=== PATIENT | female | born 1965 | race Caucasian/White ===

== ENCOUNTER 2016-09-13 11:22 | Emergency (ER) | payer OTHER ==
[2016-09-13] MEDS ORDERED: HYDROmorphONE/DILAUDID 1 MG/ML SYR IVP ONE ×2 (12:03→14:26)
[2016-09-13] MEDS ORDERED: ONDANSETRON 4 MG/2 ML VIAL IVP ONE (12:04)
[2016-09-13] MEDS ORDERED: NS 500 ML IV ONE (12:22)
--- NOTE | 2016-09-13 13:04 | DX ---
Left Wrist Series, Four Views, 12:26 p.m. Indication: Kickboxing injury. Comparison: None. Findings: A transverse fracture courses through the distal radial diaphysis 7 cm proximal to the art icular surface. The distal fracture fragment is displaced ulnarly one full bone width, is minimally r etracted, and has mild (20 degrees) of apex ulnar angulation. A nondisplaced oblique fracture courses through the distal ulnar metaphysis. Impression: 1. Acute displaced and angulated distal radial diaphyseal fracture. 2. Acute nondisplaced distal ulnar metaphyseal fracture.
--- NOTE | 2016-09-13 13:24 | EDPHY ---
H & P Stated Complaint: fall kickboxing. deformity and pain left wrist Source: Patient, Family Exam Limitations: No limitations - Personal History LMP (Females 10-55): Post Menopausal Current Tetanus/Diphtheria Vaccine: Yes Current Tetanus Diphtheria and Acellular Pertussis (TDAP): Yes Tetanus Vaccine Date: 2013 - Medical/Surgical History Hx Asthma: No Hx Chronic Respiratory Disease: No Hx Diabetes: No Hx Cardiac Disease: No Hx Renal Disease: No Hx Cirrhosis: No Hx Alcoholism: No Hx HIV/AIDS: No Hx Splenectomy or Spleen Trauma: No Other PMH: R ACHILLES - Social History Smoking Status: Never smoked HPI/ROS: CHIEF COMPLAINT: Left wrist pain HISTORY OF PRESENT ILLNESS: fell while kickboxing and injured her left wrist falling on outstretched hand. significant pain and deformity of the left wrist. The pain radiates into the hand but there is no numbness or tingling of the hand. There is no tenderness of the ipsilateral elbow or shoulder. Range of motion has not been tested due to pain. She has severe pain at this time. Worse with any kind of movement or palpation. Improving with the IV pain medication and splinting. No other injuries elsewhere. No other associated complaints or modifying factors. PRIOR ORTHO INJURIES: Achilles rupture ESTABLISHED ORTHOPEDIST: Dr. Jese De Anda REVIEW OF SYSTEMS: Ten systems reviewed and are negative unless otherwise noted in the HPI EXAMINATION General Appearance: Alert, no distress Head: normocephalic, atraumatic Eyes: Pupils equal and round, no conjunctival pallor or injection ENT, Mouth: Mucous membranes moist Neck: Normal inspection Respiratory: No dyspnea or retractions. No distress Cardiovascular: Pulses normal throughout. Brisk cap refill in all 10 fingers. Neurological: A&O, sensory symmetric In radial, ulnar and median. strength symmetric . Skin: Warm and dry, no rash Extremities: deformity to the left wrist. No cyanosis, pallor or anesthesia distally. There is significant tenderness to palpation of this. Range of motion not tested due to deformity. Range of motion of the ipsilateral elbow and shoulder are intact without pain Psychiatric: Mood and affect normal DIFFERENTIAL DIAGNOSES: Including but not limited to fracture, fracture dislocation, MDM: 1:20 p.m. fall on outstretched hand with fracture dislocation of the left radius and ulna. She was neurovascular intact on 1st examination. despite any elbow pain we did obtain an elbow x-ray to rule out occult fracture. 1:28 p.m. I have re-evaluated the patient. X-ray has been read by me without any acute fracture of the elbow. We are awaiting the radiologist's repeat on repeat examination of the wrist, she has no numbness or paresthesia of the hands she has significant pain. She is apprehensive about being splinted in this position. I will discuss with Orthopedics. She is requesting that I call her established orthopedist 1st which I will try and do at this time. 2:05 p.m. He remains neurovascular intact pain is significant. I have discussed the case with Dr. Montague, the physician on-call for her status Orthopedics outside of the [facility]. He said that he be happy to see her on Thursday morning and plan for surgical intervention. He did recommend that we attempt to reduce the forearm. He will be happy to see her early next week. 3:20pm Forearm has been reduced with procedural sedation administered and monitored by Dr. Briones and C-arm used to verify reduction. nearly completely reduced. Tolerated the procedure well without complication. neurovascular intact distally postprocedure. Postprocedural reduction film ordered and pending at this time. 3:45 p.m. she is feeling significantly better pill the post reduction film shows significant improvement in the alignment. She remains neurovascularly intact post procedure and post splinting. She will be discharged home stable condition with pain medication, definitive orthopedic follow-up information and return to the ER precautions. PROCEDURE: Left Forearm Reduction Consent: written Anesthesia: Procederal sedation (Dr. Briones) After good anesthesia, the left forearm was reduced with use of C-arm to verify placement. There was near anatomic but not complete anatomic reduction. The patient tolerated the procedure well without any desaturations or complications. Splint was placed while she was still under procedural sedation. She remains neurovascularly intact post reduction with 2+ radial and brisk cap refill ED Precautions: Worsening pain. Erythema, edema, cyanosis, pallor, paresthesia or anesthesia. SUPERVISION: Patient was evaluated in conjunction with the supervising physician. Please see their note for details. (Eric Palmer) Constitutional: Initial Vital Signs Temperature (C) 98.2 F 09/13/16 11:40 Heart Rate 68 09/13/16 11:40 Respiratory Rate 18 09/13/16 11:40 Blood Pressure 128/85 H 09/13/16 11:40 O2 Sat (%) 98 09/13/16 11:40 O2 Delivery Mode [Post Non-Rebreather Mask Procedure 2nd] O2 Delivery Mode [Post Non-Rebreather Mask Procedure 1st] O2 Delivery Mode [Procedural Non-Rebreather Mask 3rd] O2 Delivery Mode [Procedural Non-Rebreather Mask 2nd] O2 Delivery Mode [Procedural Non-Rebreather Mask 1st] O2 Delivery Mode Room Air O2 (L/minute) [Post Procedure 15 2nd] O2 (L/minute) [Post Procedure 15 1st] O2 (L/minute) [Procedural 3rd] 15 O2 (L/minute) [Procedural 2nd] 15 O2 (L/minute) [Procedural 1st] 15 O2 (L/minute) 15 Allergies/Adverse Reactions: gluten [Gluten] Allergy (Intermediate, Verified 06/17/15 08:35) GI lactose [Lactose] Allergy (Intermediate, Verified 06/17/15 08:35) GI Home Medications: Medication Instructions Recorded Azithromycin [Zithromax] 250 mg PO DAILY #6 tab 06/17/15 Vitax 06/17/15 oxyCODONE/APAP 5/325 [Percocet 1 - 2 tab PO Q4-6PRN PRN #12 tab 06/17/15 5/325 (*)] Hydrocodone/APAP 5/325 [[place] 1 - 2 tab PO Q6H PRN #20 tab 09/13/16 5/325 (*)] Ondansetron Odt [Zofran Odt 4 mg 4 mg PO Q4 PRN #12 tab 09/13/16 (*)] Medical Decision Making Procedures: Procedure: Conscious sedation. Indication: 40 fracture reduction The patient is an appropriate candidate to tolerate procedural sedation. Patient's vital signs and mental status are appropriate. The risks, benefits, and alternatives of the sedation were discussed with the patient. The patient is an ASA classification of 1. The patient's Mallampati airway score was 2 and the patient did meet the 3-3-2 airway measurements. A time out was completed. The patient was sedated with propofol fall, 100 mg. The patient was monitored with continuous pulse oximetry, tire center manager and end tidal CO2. There were no complications and no significant hypoxemia. I performed the sedation. The total time I spent at the bedside during the procedural sedation was 15 minutes. The patient was examined after the procedural sedation and has returned to their pre-sedation baseline with normal vital signs and a normal examination. ( Marija Briones) Other Provider: I evaluated and participated in the management of the patient. I also evaluated the patient independently. My co-signature indicates that I have reviewed this chart and I agree with the findings and plan of care as documented. My personal H&P findings include: 50-year-old female whose kickboxing when she fell, landing on outstretched hand. She complains of significant discomfort in her distal left forearm, and wrist. No other trauma. Patient was neurovascularly intact on arrival. She does have a deformity at the distal radius. X-ray demonstrates a widely displaced, angulated, distal radius fracture proximal 4 cm proximal to the wrist. Patient also has distal ulnar fracture. Patient's course was discussed with both Orthopedic surgery on-call for the emergency department, Dr. Day as well as with the patient's preferred orthopedic surgeon, Dr. De Anda. Patient had a closed reduction performed in the emergency department. Post reduction x-rays demonstrate good realignment. Reduction was performed by SHANE Camacho. Conscious sedation was performed by myself. Please see the note. Patient was discharged to follow up with Dr. De Anda on Thursday. She understands that surgical intervention will most likely be needed. (Marija Briones) - Data Points Medications Given: Discontinued Medications Hydromorphone HCl (Dilaudid) 0.5 mg IVP EDNOW ONE Stop: 09/13/16 12:04 Last Admin: 09/13/16 12:20 Dose: 0.5 mg Sodium Chloride (Ns) 500 mls @ 0 mls/hr IV ONCE ONE PRN Reason: TKO Stop: 09/13/16 12:23 Last Admin: 09/13/16 12:22 Dose: 500 mls Ondansetron HCl (Zofran) 4 mg IVP EDNOW ONE Stop: 09/13/16 12:05 Last Admin: 09/13/16 12:20 Dose: 4 mg Departure - Departure Disposition: Home, Routine, Self-Care Clinical Impression: Distal radius fracture, left Qualifiers: Encounter type: initial encounter Fracture type: closed Fracture morphology: other fracture Qualifier Code: (S52.592A) Other fractures of lower end of left radius, initial encounter for closed fracture Distal end of ulna fracture, closed Qualifiers: Encounter type: initial encounter Fracture morphology: other fracture Laterality: left Qualifier Code: (S52.692A) Other fracture of lower end of left ulna, initial encounter for closed fracture Condition: Good Instructions: Arm Fracture in Adults (ED) Additional Instructions: follow-up with Dr. Montague as discussed. Call his office [phone] Thursday morning to year appointment. Return to the ER for worsening pain, numbness, tingling, weakness, cyanosis, pallor or paresthesia of the hand Referrals: Migue Salinas MD [Medical Doctor] - As per Instructions Prescriptions: Hydrocodone/APAP 5/325 [[place] 5/325 (*)] 1 - 2 tab PO Q6H PRN #20 tab PRN Reason: Pain, Mild Ondansetron Odt [Zofran Odt 4 mg (*)] 4 mg PO Q4 PRN #12 tab PRN Reason: Nausea/Vomiting, Use 1st
--- NOTE | 2016-09-13 13:27 | DX ---
Left Elbow, 3 Views 12:59 p.m. Indication: Pain. Fall. Findings: The elbow is anatomically aligned. No radial head fracture or effusion. Distal humerus and proximal shaft of the radius and ulna are intact. The displaced distal radius fracture is present june ng the margin of the film. Impression: Normal elbow. No acute radial head fracture or effusion.
[2016-09-13] MEDS ORDERED: fentaNYL 100 MCG/2 ML INJ IVP ONE (14:46)
[2016-09-13] MEDS ORDERED: PROPOFOL 200 MG/20 ML VIAL IVP ONE (14:47)
[2016-09-13] MEDS ORDERED: ONDANSETRON 4 MG/2 ML VIAL ONE (14:58)
--- NOTE | 2016-09-13 15:59 | DX ---
Left Forearm, Two Views Indication: Post reduction. Comparison: Left wrist series from 3 hours prior. Findings: The distal radial and ulnar fractures have been reduced into near-anatomic alignment and pl aced in a fiberglass splint. The distal radial fracture fragment remains translated dorsally one half of the bone width. Impression: Near-anatomic reduction of distal radial and ulnar fractures now in splint.
[2016-09-13 16:18] VITALS: BP 100/65; PULSE 85; RESP 20; TEMP 97.7; O2SAT 96
== END 2016-09-13 16:16 | disposition home or self-care (01) ==
PROC: 0PSJXZZ Reposition Left Radius, External Approach (ICD-10-PCS; principal; 2016-09-13)
PROC: 0PSLXZZ Reposition Left Ulna, External Approach (ICD-10-PCS; 2016-09-13)
DX: S52.592A Other fractures of lower end of left radius, initial encounter for closed fracture (principal); S52.692A Other fracture of lower end of left ulna, initial encounter for closed fracture; W19.XXXA Unspecified fall, initial encounter; Y99.8 Other external cause status; Y93.71 Activity, boxing
CPT/HCPCS: 96374; A4565; J1170; J2405; J2704; J3010

== ENCOUNTER 2016-12-14 14:40 | Emergency (ER) | payer OTHER ==
--- NOTE | 2016-12-14 15:02 | EDPHY ---
H & P Time Seen by Provider: 12/14/16 15:00 HPI/ROS: 50-year-old female presents complaining of cough, mild sore throat, nasal congestion for several days. She does not smoke she has no prior significant medical history. Her son currently is being treated for pneumonia. She is very concerned that she may possibly have pneumonia as well. Review of systems As per HPI General no fever no chills no weakness HEENT no eye pain no eye discharge. No eye redness, positive sore throat Respiratory positive cough, no shortness of breath Cardiac no chest pain, no peripheral edema GI no abdominal pain, no diarrhea, no constipation, no nausea, no vomiting no flank pain, no hematuria, no dysuria Musculoskeletal no myalgias, no joint pain Heme no easy bruising, no easy bleeding Endo no polyuria, no polydipsia Skin no rashes, no pruritus Neuro no syncope, no dizziness, no headaches Psych is no suicidal ideation, no homicidal ideation Past Medical/Surgical History: None Social History: No excessive alcohol or drug use Smoking Status: Never smoked Physical Exam: 50-year-old female HEENT atraumatic normocephalic, extraocular muscles intact, anicteric Oropharynx mild erythema, negative exudate, tolerating her own secretions Neck supple no meningismus Lungs clear to auscultation bilaterally Heart regular rate and rhythm without murmur rub or gallop Abdomen nondistended normoactive bowel sounds soft nontender Back no CVA tenderness, no step-offs, no spinal tenderness Extremities no cyanosis clubbing or edema Neuro alert and oriented, no focal deficits Constitutional: Initial Vital Signs Temperature (C) 36.9 C 12/14/16 14:52 Heart Rate 92 12/14/16 14:52 Respiratory Rate 18 12/14/16 14:52 Blood Pressure 132/78 H 12/14/16 14:52 O2 Sat (%) 94 12/14/16 14:52 Allergies/Adverse Reactions: gluten [Gluten] Allergy (Intermediate, Verified 12/14/16 14:51) GI lactose [Lactose] Allergy (Intermediate, Verified 12/14/16 14:51) GI Home Medications: Medication Instructions Recorded Calcium 12/14/16 Vitamin D3 (*) 12/14/16 Medical Decision Making ED Course/Re-evaluation: Patient seen and evaluated for cough, concern for pneumonia Chest x-ray Negative Impression Bronchitis Plan Symptomatic care Rest, plenty of fluids Follow up with PCP as needed Departure - Departure Disposition: Home, Routine, Self-Care Clinical Impression: Bronchitis Condition: Good Instructions: Acute Bronchitis (ED) Referrals: Erna Bañuelos MD [Primary Care Provider] - As per Instructions
[2016-12-14 15:52] VITALS: BP 104/77; PULSE 90; RESP 16; TEMP 99.5; O2SAT 96
== END 2016-12-14 15:50 | disposition home or self-care (01) ==
LOC: CED 14:40
DX: J40 Bronchitis, not specified as acute or chronic (principal)
CPT/HCPCS: 71020-PO

== ENCOUNTER → 2018-05-24 | Outpatient (CLI) | payer OTHER | LOC: CIMAGING 12:27 | PROVIDERS: ATTEND Family Medicine | DX: Z12.31 Encounter for screening mammogram for malignant neoplasm of breast (principal); Z80.3 Family history of malignant neoplasm of breast ==

== ENCOUNTER → 2018-10-12 | Outpatient (CLI) | payer OTHER | LOC: BMCIMAGING 12:52 | PROVIDERS: ATTEND Orthopaedic Surgery | DX: M79.605 Pain in left leg (principal) ==

== ENCOUNTER → 2018-11-17 | Outpatient (CLI) | payer OTHER | LOC: BRMIMAGING 10:57 | PROVIDERS: ATTEND Family Medicine | DX: Z13.820 Encounter for screening for osteoporosis (principal); M85.89 Other specified disorders of bone density and structure, multiple sites ==